=== PATIENT | male | born 1995 | race Caucasian/White ===

== ENCOUNTER 2016-09-01 05:37 | Emergency (ER) | payer BC, OTHER ==
[~2016-09-01] VITALS: Ht 182.9 cm; Wt 73.2 kg
[2016-09-01 05:39] VITALS: TEMP 36.6; Ht 182.9 cm; Wt 73.2 kg
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
[2016-09-01] MEDS ORDERED: IBUPROFEN 600 MG TAB PO STA (06:40)
[2016-09-01 06:58] VITALS: BP 105/75; PULSE 58; O2SAT 98
== END 2016-09-01 07:00 | disposition home or self-care (01) ==
LOC: EDBD 05:37 → C.EDB 05:39
DX: S80.02XA Contusion of left knee, initial encounter (principal); S80.212A Abrasion, left knee, initial encounter; W01.10XA Fall on same level from slipping, tripping and stumbling with subsequent striking against unspecified object, initial encounter; Y92.89 Other specified places as the place of occurrence of the external cause; F17.210 Nicotine dependence, cigarettes, uncomplicated; Y93.89 Activity, other specified